=== PATIENT | female | born 1990 | race African-American/Black ===

== ENCOUNTER 2017-01-20 21:18 | Emergency (ER) | payer OTHER, BC ==
[~2017-01-20] VITALS: Ht 154.9 cm; Wt 63.3 kg
[2017-01-20 21:34] VITALS: BP 100/77
[2017-01-20] MEDS ORDERED: MOTRIN800 MG PO (23:56)
[2017-01-20] MEDS ORDERED: ZOFRAN ODT4 MG PO (23:56)
[2017-01-20] MEDS ORDERED: ANTIVERT25 MG PO (23:56)
[2017-01-20] MEDS ORDERED: FIORICET 50-301 EACH PO (23:56)
== END 2017-01-21 00:36 | disposition home or self-care (01) ==
LOC: EME 21:18
DX: S06.0X0A Concussion without loss of consciousness, initial encounter (principal); Y04.2XXA Assault by strike against or bumped into by another person, initial encounter; Y93.F9 Activity, other caregiving; Y92.10 Unspecified residential institution as the place of occurrence of the external cause; Y99.0 Civilian activity done for income or pay
CPT/HCPCS: 70450; 70486; 99281; 99285